=== PATIENT | male | born 1970 | race Caucasian/White ===

== ENCOUNTER 2023-05-04 16:20 | Emergency (ER) | payer BC, SELFPAY ==
--- NOTE | 2023-05-04 16:21 | XRR_ITS ---
PROCEDURE INFORMATION: Exam: XR Left Ankle Exam date and time: 05/04/2023 4:39 PM Age: 52 years old Clinical indication: Injury or trauma; Other: Twisted lt ankle; Sprain or strain; Left TECHNIQUE: Imaging protocol: Radiologic exam of the left ankle. Views: 3 or more views. COMPARISON: No relevant prior studies available. FINDINGS: Bones/joints: No fracture or other acute abnormality. There is a small anterior distal tibial spur. Ankle mortise is otherwise normal. There are calcaneal enthesophytes. Soft tissues: Normal. XR/XR ankle LT min 3V* 04102 IMPRESSION: Nonacute findings.
[2023-05-04 16:22] VITALS: BP 177/105; PULSE 87; RESP 16; TEMP 36.4; O2SAT 97; BMI 37.1
--- NOTE | 2023-05-04 16:43 | ED_ITS ---
HPI - Extremity Injury (Lower) General: Chief Complaint: Extremity Injury, Lower Stated Complaint: left ankle injury Time Seen by Provider: 05/04/23 16:22 Source: patient Mode of arrival: ambulatory Limitations: no limitations History of Present Illness: Patient is a 52-year-old male who presents to ED today for evaluation of a left ankle injury. Patient states he was trying to get up into his truck when he stepped and inverted the left ankle. He was initially able to bear weight on it but as time progressed he states it has increasingly become more difficult. He has noticed swelling and pain to the lateral aspect of his left ankle. He has no other injuries or complaints at this time. complaint: ankle injury Onset (ago): hour(s) Injury: Left: ankle Type of Injury: inversion Place: home Severity: moderate Relieving factors: immobilization Exacerbating factors: weight bearing, movement and palpation Context: other (twisted) Associated symptoms: Reports inability to bear weight Other symptoms: none Review of Systems Musc: Reports: joint pain (L ankle) and joint swelling (L ankle); Denies: neck pain, back pain, extremity pain or extremity swelling Neuro: Reports: difficulty walking (secondary to pain in L ankle); Denies: numbness in extremities, weakness in extremities or sensory changes Physical Exam Const: COMMON NORMALS: no acute distress, patient oriented x3, no limitations, alert and well nourished Extremity: COMMON NORMALS: capillary refill normal, no clubbing, cyanosis or edema, no calf tenderness and no pedal edema GENERAL: Yes normal exam except as noted LEFT LOWER EXTREMITY: Yes ankle joint Left ankle: Yes inspection (no obvious bony deformities/injuries noted), Yes palpation (TTP lateral ankle) and Yes neurovascular exam (normal) Neuro: COMMON NORMALS: patient oriented x3 SENSORIUM/ORIENTATION: Yes alert Course Vital Signs: Vital signs: Vital Signs Temperature 97.6 F 05/04/23 16:22 Pulse Rate 87 05/04/23 16:22 Respiratory Rate 16 05/04/23 16:22 Blood Pressure 177/105 05/04/23 16:22 Pulse Oximetry 97 05/04/23 16:22 MDM - Extremity Injury (Lower) Medical Decision Making XR negative. Will KIRILL wrap/crutches for instructions for weight bearing as tolerated/RICE therapy. Follow up with PCP in 1-2 weeks if symptoms are not improving. Differential Diagnosis Likely ankle sprain and strain Medical Records I reviewed the patient's medical records. Lab Data Radiology Impressions Ankle X-Ray 05/04/23 16:21 IMPRESSION: Nonacute findings. All radiology interpretation(s) finalized by discharge Discharge Plan Discharge Patient Disposition: Home Clinical Impression: Left ankle sprain Qualifiers: Encounter type: initial encounter Involved ligament of ankle: unspecified ligament Qualified Code(s): S93.402A - Sprain of unspecified ligament of left ankle, initial encounter Condition: Stable Discharge Orders: Discharge ED (Routine); Ordered 05/04/23 Ordered By: Delia Page Patient Instructions: Ankle Sprain (DC), RICE Therapy Coding Level of Care Code ED Community Facilitator for [facility]ton
== END 2023-05-04 17:10 | disposition home or self-care (01) ==
PROVIDERS: Emergency Provider Physician Assistant
DX: S93.402A Sprain of unspecified ligament of left ankle, initial encounter (principal); X50.1XXA Overexertion from prolonged static or awkward postures, initial encounter
CPT/HCPCS: 73610; 99283; E0114

== ENCOUNTER 2025-06-14 07:31 | Outpatient (CLI) | payer BC, SELFPAY ==
--- NOTE | 2025-06-14 08:04 | FL_ITS ---
WS: [id number] Barium swallow and esophagram, 06/14/2025 Clinical Data: DYSPHAGIA Comparison: None. Fluoroscopy time: 1min [id number] # of spot films: 26 Findings: The patient swallowed the thick and thin barium, and it flowed through the hypopharynx without hesitation. No stricture, mass, polyp or erosion was seen. No aspiration or penetration occurred. The barium entered the esophagus and there was normal motility throughout. No reflux, stricture, polyp, mass, erosion or ulcer was noted. There is a small sliding hiatal hernia. The barium passed normally into the stomach.. FL/FL barium swallow [id number] Impression: Small hiatal hernia.
== END 2025-06-14 07:32 | disposition home or self-care (01) ==
LOC: RAD 07:33
PROVIDERS: PCP Nurse Practitioner Family; Visit Provider Nurse Practitioner Family
DX: R13.10 Dysphagia, unspecified (principal); K44.9 Diaphragmatic hernia without obstruction or gangrene
CPT/HCPCS: 74220